=== PATIENT | male | born 1975 | race Caucasian/White ===

== ENCOUNTER 2020-07-17 08:37 | Emergency (ER) | payer OTHER, SELFPAY ==
--- NOTE | ~2020-07-17 | CT_ITS ---
EXAMINATION: CT ABDOMEN AND PELVIS WITH CONTRAST CLINICAL INFORMATION: Nausea/emesis, gallstone. Abdominal pain COMPARISON: None TECHNIQUE: Multidetector volumetric images were obtained from the superior aspect of the liver through the pubic symphysis following administration 85 mL of Omnipaque 350 intravenous contrast. Sagittal and coronal reformatted images were obtained on the technologist's workstation. Oral contrast: No This CT examination was performed using dose optimization techniques as appropriate, variously including the following: *Automated exposure control *Adjustment of mA and/or kV according to patient size (this includes techniques or standardized protocols for targeted exams where dose is matched to indication/reason for exam; i.e. extremities or head) *Use of iterative reconstruction technique DLP: 687 mGy-cm FINDINGS: LUNG BASES: Minimal atelectatic changes in both lung bases. The heart size is normal. A small hiatal hernia suspected. LIVER, GALLBLADDER, AND BILIARY TREE: The liver is normal in size, shape, and attenuation. No focal hepatic lesion or biliary ductal dilatation is present. The gallbladder is unremarkable with no evidence of radiopaque gallstones, gallbladder wall thickening, or obvious pericholecystic inflammatory changes. PANCREAS: Unremarkable. SPLEEN: Unremarkable. ADRENAL GLANDS: Unremarkable. KIDNEYS AND URETERS: The kidneys are normal in size, shape, and attenuation. No hydronephrosis, hydroureter, or calculi seen. No perinephric stranding. BLADDER: Unremarkable. GASTROINTESTINAL TRACT: There is scattered stool, diverticuli and gas seen throughout the colon without distention. The small bowel loops are normal caliber. No inflammatory process seen in the abdomen. The appendix is normal caliber. There is no free air or free fluid. ABDOMINAL WALL: A small umbilical hernia and a left inguinal hernia containing fat is noted. LYMPH NODES: Normal. VASCULAR: Unremarkable. PELVIC VISCERA: There are scattered phleboliths in the pelvis. The prostate gland is normal size. OSSEOUS STRUCTURES: Unremarkable. CT/CT abdomen pelvis w con IMPRESSION: Colonic diverticulosis without diverticulitis. No obstruction, free fluid. Normal appendix. Small hiatal hernia. Small umbilical hernia and left inguinal hernia containing fat.
[2020-07-17 09:02] VITALS: BP 127/87; PULSE 68; RESP 16; TEMP 36.7; O2SAT 97; BMI 30.1
--- NOTE | 2020-07-17 09:03 | ECG_ITS ---
Test Reason : NAUSEA Blood Pressure : / mmHG Vent. Rate : 064 BPM Atrial Rate : 064 BPM P-R Int : 148 ms QRS Dur : 090 ms QT Int : 398 ms P-R-T Axes : 044 001 047 degrees QTc Int : 410 ms Normal sinus rhythm with sinus arrhythmia Normal ECG No previous ECGs available Referred By: Parveen Malagon Electronically Signed By:BIANKA MITCHELL MD
--- NOTE | 2020-07-17 09:14 | ED_ITS ---
HPI - Nausea/Vomiting/Diarrhea General Chief complaint: Nausea/Vomiting/Diarrhea Stated complaint: VOMITING Time Seen by Provider: 07/17/20 08:50 Source: patient Mode of arrival: ambulatory Limitations: no limitations History of Present Illness HPI Narrative: Patient presents to ED in for nausea and vomiting. Patient states having this issue for many years and comes into the ER at least 4 to 5 times a year for this issue. 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 Patient was seen at [facility] yesterday he was given GI cocktail before discharge. Patient states history of gastritis. Patient states not having this time abdominal discomfort, but just constant v omiting the past 4 days. Patient denies any drug use, rectal bleeding, or vomiting blood. Patient denies any alcohol use. Patient denies going to withdrawal on any drugs. Patient denies any chest pain, shortness of breath, flank pain, dysuria, hematuriaa, fever, or chills. MD elicited complaint: nausea and vomiting Associated nausea: Yes Related Data Previous Rx's Medication Instructions Recorded famotidine [Pepcid] 20 mg PO BID #40 tab 07/17/20 Allergies Allergy/AdvReac Type Severity Reaction Status Date / Time ibuprofen [IBUPROFEN] Allergy Unknown UNKNOWN Verified 07/17/20 09:33 cyclobenzaprine AdvReac Unknown VISUAL Verified 07/17/20 09:33 [From FLEXERIL] CHANGES Review of Systems Review of Systems: Yes all other systems are reviewed and are negative Constitutional: Constitutional: Reports as per HPI and Reports no additional constitutional complaints Eyes: Eyes: Reports as per HPI and Reports no additional eye complaints ENT: Reports system reviewed and no additional complaints, except as documented and Reports as per HPI Cardiovascular: Cardiovascular: Reports as per HPI and Reports no additional cardiovascular complaints Respiratory: Respiratory: Reports as per HPI and Reports no additional respiratory complaints Gastrointestinal: Gastrointestinal: Reports as per HPI, Reports no additional gastrointestinal complaints, Reports abdominal pain (Mild), Reports nausea and Reports vomiting Genitourinary: Genitourinary: Reports no additional male genitourinary complaints and Reports as per HPI Musculoskeletal: Musculoskeletal: Reports no additional musculoskeletal complaints and Reports as per HPI Neurologic: Reports system reviewed and no additional complaints, except as documented and Reports as per HPI Psychiatric: Psychiatric: Reports no additional psychiatric complaints and Reports as per HPI [facility] Social History Social History Alcohol intake: current Alcohol intake frequency: a few times a week Alcohol type: beer Smoking Status: Current every day smoker Physical Exam Vital Signs: Vital Signs: Last Vital Signs Temp 98.1 F 07/17/20 09:02 Pulse 76 07/17/20 14:00 Resp 18 07/17/20 14:00 BP 104/76 07/17/20 14:00 Pulse Ox 95 07/17/20 14:00 Body Mass Index 30.1 Const: General: cooperative, healthy appearing, comfortable, no acute distress, well developed, alert, awake and Physically active Orientation/consciousness: patient oriented x3 HENMT: Head: Yes normal to inspection, Yes No palpable skull fracture present, Yes normocephalic and Yes atraumatic Eyes: General: appearance normal, both eyes and all related structures Neck: Neck: Yes normal visual inspection, Yes full ROM, Yes no lymphaden opathy, Yes no meningeal signs, Yes trachea midline, Yes supple and No tender Chest: Chest palpation & inspection: normal inspection of the chest and normal palpation of entire chest wall Resp: Effort & Inspection: normal respiratory effort and able to speak in complete sentences Auscultation: clear to auscultation bilaterally Cardio: Jugular venous distension: no JVD Heart sounds: S1 normal heart sound present and S2 normal heart sound present GI: Inspection: Yes normal to inspection and No abdominal wall ecchymosis Palpation (GI): Soft to palpation, not firm, nontender, no guarding and not rigid : General: No CVA tenderness and Yes no CVA tenderness Back/Spine/Pelvis: Back: no CVA tenderness, No CVA tenderness and No back tenderness Skin: General skin exam: no rashes or lesions noted and elasticity normal Neuro: General: patient oriented x3, no meningeal signs and CN's II-XI intact bilaterally Cranial nerves: Yes CN's II-XII intact bilaterally Extrem: General: Yes normal to inspection and Yes full ROM Psych: Appearance: grossly normal, well kempt and not disheveled Course Course Course Narrative: Patient will have repeat labs and due to history for father dying from a heart attack in his 50s patient will have EKG and 1 troponin sent. Patient denies any chest pain or shortness of breath. Reevaluation(s) Reevaluation #1: patient's labs came back normal and at baseline. negative for elevated WBC. Liver enzymes normal. ekg negative for stemi. troponin is negative after 4 days of emesis. patient will be sent for abdominal Ct scan. patient was seen last night at [facility] ER, but I could not receive records although they were reqeusted. Reevaluation #2: CT scan of abdomen came back normal. UA negative for UTI. passed PO challenge. patient already has zofran prescription from [facility]. patient has follow up with PCP for and informed he shold be referred to GI doctor. cyclic vomitting is a differential. MDM - Nausea/Vomiting/Diarrhea MDM Narrative Medical decision making narrative: Gastritis, nausea& emesis Lab Data Result diagrams: 07/17/20 09:28 07/17/20 09:28 Labs: Lab Results 07/17/20 07/17/20 07/17/20 Range/Units 09:28 09:28 09:28 WBC 8.6 (4.8-10.8) X10*3/uL RBC 5.03 (4.60-5.80) X10*6/uL Hgb 15.3 (14.0-18.0) g/dl Hct 45.1 (42-52) % MCV 89.7 (80-98) fL MCH 30.4 (27.0-33.0) pg MCHC 33.9 (31.0-36.0) g/dl RDW 12.9 (11.0-16.0) % Plt Count 224 (160-400) X10*3/uL MPV 10.0 (9.4-12.4) fL Immature Gran % (Auto) 0.2 (0.0-0.4) % Neut % (Auto) 74.9 H (45-73) % Lymph % (Auto) 19.0 L (20-40) % Coke % (Auto) 5.4 (2-11) % Eos % (Auto) 0.2 (0-4) % Baso % (Auto) 0.3 (0-2) % Lymph # (Auto) 1.6 (1.2-4.9) X10*3/uL [place] # (Auto) 0.5 (0.1-1.2) X10*3/uL Eos # (Auto) 0.0 (0.0-0.4) X10*3/uL Baso # (Auto) 0.0 (0.0-0.2) X10*3/uL Abs Immat Gran (auto) 0.02 (0.00-0.03) X10*3/uL Absolute Neuts (auto) 6.4 (2.0-8.3) X10*3/uL Absolute Nucleated RBC 0.000 (0.0-0.012) X10*3/uL Nucleated RBC % (auto) 0.0 (0.0-0.2) /100WBC Sodium 138 (135-145) mmol/L Potassium 4.1 (3.3-5.1) mmol/L Chloride 104 (96-108) mmol/L Carbon Dioxide 24 (22-29) mmol/L Anion Gap 14 (12-20) BUN 16 (9-16) mg/dL Creatinine 0.84 (0.5-1.4) mg/dL Estim Creat Clear Calc 132.7 Estimated GFR > 60 Random Glucose 105 (60-115) mg/dL Calcium 8.7 (8.4-10.2) mg/dL Magnesium 2.1 (1.6-2.6) mg/dL Total Bilirubin 0.9 (0.0-1.0) mg/dL Direct Bilirubin 0.3 (0.0-0.5) mg/dL AST 20 (5-37) U/L ALT 25 (0-40) U/L Alkaline Phosphatase 40 (39-117) U/L Troponin I High Sens < 3.5 (<3.5-35.0) ng/L Total Protein 6.6 (6.5-8.0) g/dL Albumin 4.2 (3.5-5.0) g/dL Lipase 40 (8-78) U/L Urine Color Urine Appearance Urine pH (5.0-8.0) Ur Specific [place] (1.005-1.025) Urine Protein (NEG-TRACE) MG/DL Urine Glucose (UA) (NEG) MG/DL Urine Ketones (NEG) MG/DL Urine Blood (NEG) Urine Nitrite (NEG) Ur Leukocyte Esterase (NEG) COVID-19 (SALO) (Negative) COVID-19 Clin Com 07/17/20 07/17/20 Range/Units 09:28 12:42 WBC (4.8-10.8) X10*3/uL RBC (4.60-5.80) X10*6/uL Hgb (14.0-18.0) g/dl Hct (42-52) % MCV (80-98) fL MCH (27.0-33.0) pg MCHC (31.0-36.0) g/dl RDW (11.0-16.0) % Plt Count (160-400) X10*3/uL MPV (9.4-12.4) fL Immature Gran % (Auto) (0.0-0.4) % Neut % (Auto) (45-73) % Lymph % (Auto) (20-40) % [place] % (Auto) (2-11) % Eos % (Auto) (0-4) % Baso % (Auto) (0-2) % Lymph # (Auto) (1.2-4.9) X10*3/uL [place] # (Auto) (0.1-1.2) X10*3/uL Eos # (Auto) (0.0-0.4) X10*3/uL Baso # (Auto) (0.0-0.2) X10*3/uL Abs Immat Gran (auto) (0.00-0.03) X10*3/uL Absolute Neuts (auto) (2.0-8.3) X10*3/uL Absolute Nucleated RBC (0.0-0.012) X10*3/uL Nucleated RBC % (auto) (0.0-0.2) /100WBC Sodium (135-145) mmol/L Potassium (3.3-5.1) mmol/L Chloride (96-108) mmol/L Carbon Dioxide (22-29) mmol/L Anion Gap (12-20) BUN (9-16) mg/dL Creatinine (0.5-1.4) mg/dL Estim Creat Clear Calc Estimated GFR Random Glucose (60-115) mg/dL Calcium (8.4-10.2) mg/dL Magnesium (1.6-2.6) mg/dL Total Bilirubin (0.0-1.0) mg/dL Direct Bilirubin (0.0-0.5) mg/dL AST (5-37) U/L ALT (0-40) U/L Alkaline Phosphatase (39-117) U/L Troponin I High Sens (<3.5-35.0) ng/L Total Protein (6.5-8.0) g/dL Albumin (3.5-5.0) g/dL Lipase (8-78) U/L Urine Color YELLOW Urine Appearance CLEAR Urine pH 7.5 (5.0-8.0) Ur Specific [place] 1.010 (1.005-1.025) Urine Protein NEG (NEG-TRACE) MG/DL Urine Glucose (UA) NEG (NEG) MG/DL Urine Ketones 40 (NEG) MG/DL Urine Blood NEG (NEG) Urine Nitrite NEG (NEG) Ur Leukocyte Esterase NEG (NEG) COVID-19 (SALO) Negative (Negative) COVID-19 Clin Com See Note ECG Data Interpretation: NOrmal sinus rythm with sinus arrythima. Vent 64, MI 148, QRS 90, QTC 410 Discharge Plan Discharge Clinical Impression: Chronic gastroesophageal reflux disease Patient Disposition: Home, Self-Care Instructions: Gastroesophageal Reflux Disease (ED), Acute Nausea and Vomiting (ED) Additional Instructions: Return to the ED immediately for worsening, nausea, emesis, any abdominal pain, fever, chills, dysuria, hematuria, flank pain, rectal bleeding, vomitting blood, or any other concerning symptoms. Recommend PCP follow up and referal to Gastroenterology. [facility]. Your labs, EKG, abdominal CT scan, and UA came back normal. Your covid swab came back negative. Prescriptions: New famotidine [Pepcid] 20 mg tablet 20 mg PO BID Qty: 40 RF: 0 Referrals: Bryn Simpson [Physician] - 2 days (Chronic nausea & emesis) Stand Alone Forms: Work/School Release Interventions: ED Discharge Assessment Last Done: 07/17/20 15:25 Discharge Date/Time: 07/17/20 15:26 Print Language: [place]se
[2020-07-17] MEDS: 0.9 % Sodium Chloride 1,000 ML 999 ML IV (09:34)
[2020-07-17] MEDS: Famotidine/PF 20 MG/2 ML VIAL IVPUSH (09:41)
[2020-07-17] MEDS: PHENobarb/Hyoscy/Atropine/Scop 10 ML ELIXIR PO (09:43)
[2020-07-17] MEDS: ondansetron HCL 4 MG/2 ML VIAL IVPUSH ×2 (09:43→10:32)
[2020-07-17] MEDS: Lidocaine HCl Viscous 2 % 15 ML SOLUTION MUCOUS MEM (09:44)
[2020-07-17] MEDS: Magnesium Hydrox/Alum Hydrox 30 ML ORAL.SUSP PO (09:44)
--- NOTE | 2020-07-17 09:47 | PC.NURSE ---
IV placed. Labs obtained and pt medicated. He is resting in bed in no apparent distress at this time.
[2020-07-17 10:02] LABS: MANUAL DIFF FLAG NO
[2020-07-17 10:05] LABS: Basophils Percent Auto 0.3 % (0-2); Eosinophils Percent Auto 0.2 % (0-4); Hematocrit 45.1 % (42-52); Hemoglobin 15.3 g/dl (14.0-18.0); Imm Gran Abs Auto 0.02 X10*3/uL (0.00-0.03); Imm Gran Pct Auto 0.2 % (0.0-0.4); Lymphocytes Absolute Auto 1.6 X10*3/uL (1.2-4.9); Mean Corpuscular HGB Conc 33.9 g/dl (31.0-36.0); Mean Corpuscular Hemoglobin 30.4 pg (27.0-33.0); Mean Corpuscular Volume 89.7 fL (80-98); Monocytes Absolute Auto 0.5 X10*3/uL (0.1-1.2); Monocytes Percent Auto 5.4 % (2-11); Neutrophils Absolute Auto 6.4 X10*3/uL (2.0-8.3); Neutrophils Percent Auto 74.9 % (45-73); Platelet Count 224 X10*3/uL (160-400); Red Blood Count 5.03 X10*6/uL (4.60-5.80); Red Cell Distribution Width 12.9 % (11.0-16.0); White Blood Count 8.6 X10*3/uL (4.8-10.8)
[2020-07-17 10:23] LABS: COVID-19 Test Negative (Negative)
[2020-07-17 10:30] LABS: Alanine Aminotransferase 25 U/L (0-40); Albumin Level 4.2 g/dL (3.5-5.0); Alkaline Phosphatase 40 U/L (39-117); Anion Gap 14 (12-20); Aspartate Amino Transferase 20 U/L (5-37); Bilirubin Direct 0.3 mg/dL (0.0-0.5); Bilirubin Total 0.9 mg/dL (0.0-1.0); Blood Urea Nitrogen 16 mg/dL (9-16); Calcium 8.7 mg/dL (8.4-10.2); Carbon Dioxide 24 mmol/L (22-29); Chloride 104 mmol/L (96-108); Creatinine Clr Calc Pharmacy 132.7; Estimated Glomerular Filt Rate > 60; Glucose Random 105 mg/dL (60-115); Lipase 40 U/L (8-78); Magnesium 2.1 mg/dL (1.6-2.6); Potassium 4.1 mmol/L (3.3-5.1); Sodium 138 mmol/L (135-145); Total Protein 6.6 g/dL (6.5-8.0)
[2020-07-17 10:31] LABS: Troponin-I High Sensitivity < 3.5 ng/L (<3.5-35.0)
--- NOTE | 2020-07-17 10:32 | PC.NURSE ---
Pt continues to have nusea and is c/o back pain. Sari ordered/given and Parveen STONE at beside with plans to order pain medications.
[2020-07-17] MEDS: diphenhydrAMINE HCL 50 MG/ML VIAL 25 MG IVPUSH (10:40)
[2020-07-17] MEDS: Ketorolac Tromethamine 30 MG/ML VIAL IVPUSH (10:41)
[2020-07-17] MEDS: iohexoL 350 MG/ML 100 ML INFUS..BTL IV (11:41)
[2020-07-17 12:49] LABS: Appearance Urine CLEAR; Color Urine YELLOW; Glucose Urine UA NEG (NEG); Leukocyte Esterase Urine NEG (NEG); Nitrite Urine NEG (NEG); PH 7.5 (5.0-8.0); Urine Blood NEG (NEG); Urine Ketones 40 MG/DL (NEG); Urine Protein NEG (NEG-TRACE)
[2020-07-17 14:00] VITALS: BP 104/76; PULSE 76; RESP 18; O2SAT 95
== END 2020-07-17 15:26 | disposition home or self-care (01) ==
PROVIDERS: Physician Assistant; Emergency Provider Emergency Medicine
DX: K21.9 Gastro-esophageal reflux disease without esophagitis (principal); R11.2 Nausea with vomiting, unspecified; R19.7 Diarrhea, unspecified; Z79.899 Other long term (current) drug therapy; F17.200 Nicotine dependence, unspecified, uncomplicated; Z71.6 Tobacco abuse counseling; Z20.822 Contact with and (suspected) exposure to COVID-19
CPT/HCPCS: 36415; 74177; 80053; 80076; 81003; 82248; 83690; 83735; 84484; 85025; 87635; 93005; 96365; 96375; 96376; 99284; J1200; J1885; J2405; Q9967

== ENCOUNTER 2020-11-11 11:10 | Emergency (ER) | payer OTHER, SELFPAY ==
[2020-11-11 11:22] VITALS: BP 106/79; PULSE 94; RESP 19; TEMP 36.9; O2SAT 95; BMI 31.5
--- NOTE | 2020-11-11 11:50 | ED.BACK ---
HPI - Back Pain/Injury General Chief Complaint: Back Pain/Injury Stated Complaint: low back pain Time Seen by Provider: 11/11/20 11:49 Source: patient Mode of arrival: ambulatory Limitations: no limitations History of Present Illness HPI Narrative: 45 y/o male presenting with acute on chronic lower back pain since yesterday. He reports a history of a laminectomy several years ago with some chonic baseline pain. Yesterday he wsa carrying a heavy box, about 40-45 lbs and lost his balance and twisted wrong with the box. He fell down forward with it, it pulled him to the ground. He felt his entire low back tense up and spasm. He has been unable to get in a comfortable position since. He has been taking Aleve with no improvement. No direct trauma to his back. No numbness, tingling or weakness in his legs. No incontinence. Pain is worse with any movement and improves with staying completely flat. MD elicited complaint: back pain, back injury and fall Pertinent past history: prior back pain Onset (ago): day(s) (1) Timing: constant Severity: severe Pain scale (0-10): 9 Quality: stabbing, aching and spasming Location: right lower back and left lower back Radiation: none Exacerbating factors: movement, walking and coughing/sneezing Relieving factors: immobilization Context: while lifting, turning/twisting and fall Associated symptoms: denies other symptoms Treatments prior to arrival: NSAIDS Work related injury: Yes Related Data Previous Rx's Medication Instructions Recorded famotidine 20 mg tablet (Pepcid) 20 mg PO BID #40 tab 07/17/20 ibuprofen 800 mg tablet 800 mg PO Q8H PRN #14 tab 11/11/20 lidocaine 5 % topical patch 1 patch TOPICAL DAILY #15 ea 11/11/20 (Lidoderm) oxycodone 5 mg tablet 5 mg PO Q6H PRN #8 tab 11/11/20 tizanidine 4 mg tablet 4 mg PO Q8H PRN #10 tab 11/11/20 Allergies Allergy/AdvReac Type Severity Reaction Status Date / Time ibuprofen [IBUPROFEN] Allergy Unknown UNKNOWN Verified 07/17/20 09:33 cyclobenzaprine AdvReac Unknown VISUAL Verified 07/17/20 09:33 [From FLEXERIL] CHANGES Review of Systems Review of Systems: Constitutional: No Fever, No Chills Cardiovascular: No Chest Pain, No SOB Respiratory: No Cough, No Sputum Gastrointestinal: No Nausea, No Vomiting, No Diarrhea, No abdominal Pain Genitourinary: No Dysuria, No Urinary Frequency, No Hematuria Musculoskeletal: + joint pain, + Myalgias Skin: No Skin Lesions, No rash Neuro: No Weakness, No Numbness, No Dizziness, No Headache Heme/Lymph: No Bruising, No Lymphadenopathy PMFSH Past Medical History Medical History (Updated 11/11/20 @ 14:41 by BERTHA Delgadillo) No known health problems Social History Social History Alcohol intake: current Alcohol intake frequency: a few times a week Alcohol type: beer Advance Directives: No Advance Directives Information Provided: No Physical Exam Vital Signs: Vital Signs: Last Vital Signs Temp 98.4 F 11/11/20 11:22 Pulse 94 11/11/20 11:22 Resp 19 11/11/20 11:22 BP 106/79 11/11/20 11:22 Pulse Ox 95 11/11/20 11:22 Body Mass Index 31.5 Appearance: Alert. Oriented X3. No acute distress. HEENT: normal inspection CVS: Normal heart rate and rhythm. Pulses normal. Respiratory: No respiratory distress. Skin: Skin warm and dry. Normal skin color. Normal skin turgor. No rashes. Extremities: no LE swelling Neuro: Oriented X 3. No motor deficit. No sensory deficit. Course Course Course Narrative: 45 y/o male presenting with acute on chronic back pain in the setting of lifting and twisting with a heavy box yesterday. Exam and clinical presentation are consistent with muscular strain and spasm. No red flag symptoms of LBP. Will medicate with NSAID, oxycodone, and muscle relaxer and reassess. Reevaluation(s) Reevaluation #1: Pain improved from a 9 to a 7 or 8, still very uncomfortable to move at all. Soft tissue tenderness to low back. Will repeat treatment and reassess. Reevaluation #2: Pain improved. Sitting up at the edge of the bed and feeling better. He feels good enough to go home. Discussed the importance of outpatient follow up, he has barriers to establishing a PCP with his job and traveling. He will continue to try and is on a wait list to be seen in Dec/Jan. Stable for d/c home. Critical Care Time Critical Care Time Critical Care Time: No Discharge Plan Discharge Clinical Impression: Strain of lumbar region Qualifiers: Encounter type: initial encounter Qualified Code(s): S39.012A - Strain of muscle, fascia and tendon of lower back, initial encounter Patient Disposition: Home, Self-Care Instructions: Low Back Strain (ED), Lower Back Exercises (ED) Additional Instructions: No bending, lifting or twisting. Use ice several times per day for 20 minutes at a time for the next 48 hours and then change to heat. Take medications as prescribed to help with pain and discomfort. Follow up with your Primary Care Doctor this week. If your pain worsens, if you develop new numbness, tingling, weakness, loss of function or incontinence call 911 or come back to the ER right away for evaluation. Prescriptions: New tizanidine 4 mg tablet 4 mg PO Q8H PRN (Reason: muscle spasticity) Qty: 10 RF: 0 ibuprofen 800 mg tablet 800 mg PO Q8H PRN (Reason: pain) Qty: 14 RF: 0 lidocaine [Lidoderm] 5 % adhesive patch,medicated 1 patch topical DAILY Qty: 15 RF: 0 oxycodone 5 mg tablet 5 mg PO Q6H PRN (Reason: pain) Qty: 8 RF: 0 No Action famotidine [Pepcid] 20 mg tablet 20 mg PO BID Qty: 40 RF: 0 Stand Alone Forms: Work/School Release Interventions: ED Discharge Assessment Last Done: 11/11/20 15:14 Discharge Date/Time: 11/11/20 15:15
[2020-11-11] MEDS: oxyCODONE HCl Immed Release 5 MG TABLET PO ×2 (12:29→13:27)
[2020-11-11] MEDS: Ketorolac Tromethamine 15 MG/ML VIAL 30 MG IM (12:29)
[2020-11-11] MEDS: Cyclobenzaprine HCl 10 MG TABLET PO (12:29)
[2020-11-11] MEDS: Lidocaine 4 % Patch ADH..PATCH 1 PATCH TRANSDERMA (13:27)
[2020-11-11] MEDS: TiZANidine HCL 4 MG TABLET PO (13:28)
[2020-11-11] MEDS: Omeprazole 40 MG CAPSULE.DR PO (14:49)
[2020-11-11] MEDS: Calcium Carbonate 750 MG TAB.CHEW PO (14:49)
== END 2020-11-11 15:15 | disposition home or self-care (01) ==
PROVIDERS: Emergency Provider Emergency Medicine Emergency Medical Services
DX: S39.012A Strain of muscle, fascia and tendon of lower back, initial encounter (principal); W10.9XXA Fall (on) (from) unspecified stairs and steps, initial encounter; Y93.9 Activity, unspecified; Y92.9 Unspecified place or not applicable; Y99.9 Unspecified external cause status; Z79.899 Other long term (current) drug therapy
CPT/HCPCS: 96372; 99284; J1885

== ENCOUNTER 2020-11-14 06:44 | Emergency (ER) | payer OTHER, SELFPAY ==
--- NOTE | ~2020-11-14 | CT_ITS ---
EXAMINATION: CT LUMBAR SPINE WITHOUT CONTRAST CLINICAL INFORMATION: History of back surgery. Worsening back pain after fall. Right hip pain. COMPARISON: CT abdomen and pelvis from 07/17/2020. TECHNIQUE: Noncontrast multidetector CT imaging examination of the lumbar spine. Axial images are presented at 1.5 mm and 2 mm slice thickness. Coronal and sagittal reformatted images were generated and reviewed. This CT examination was performed using dose optimization techniques as appropriate, variously including the following: *Automated exposure control *Adjustment of mA and/or kV according to patient size (this includes techniques or standardized protocols for targeted exams where dose is matched to indication/reason for exam; i.e. extremities or head) *Use of iterative reconstruction technique DLP; 517 mGy-cm FINDINGS: The lumbar vertebra have normal density, height and alignment. No evidence of pars interarticularis defect or vertebral compression fracture. Prior L3 laminectomy. Otherwise, posterior elements are intact. No focal lytic or osteoblastic lesion. The intervertebral disc height is well-preserved throughout the lumbar spine. At L3-L4, there is mild disc bulge and mild facet hypertrophy. Also, mild bulging of discs noted at L4-5 and L5-S1. No significant narrowing of the central spinal canal. At L5-S1, the bulging disc encroaches on the inferior aspect of each neural foramen (right worse than left) and appears to mildly impinge upon the exiting right L5 nerve root and contact the exiting left L5 nerve root. These imaging findings are unchanged compared to 07/17/2020. Sacrum and sacroiliac joints are normal. No evidence of paraspinal soft tissue edema or hematoma. No para-aortic lymphadenopathy. The visualized abdominal aorta is normal. Also, the visualized kidneys are normal; no evidence of nephrolithiasis or hydroureteronephrosis. CT/CT lumbar spine wo con IMPRESSION: * No acute imaging abnormalities in the lumbosacral spine compared to 07/17/2020, status post L3 laminectomy. No evidence of vertebral compression fracture or subluxation. * There are chronically bulging discs at L3-L4, L4-5 and L5-S1 without significant narrowing of the central spinal canal. * At L5-S1, the disc bulge encroaches on the right and left neural foramen (right worse on left) and there appears to be chronic mild impingement upon the exiting right L5 nerve root. This is unchanged compared to 07/17/2020.
--- NOTE | ~2020-11-14 | XR_ITS ---
EXAMINATION: CHEST. AP PELVIS AND RIGHT HIP. CLINICAL INFORMATION: Status post fall with right hip pain. COMPARISON: None TECHNIQUE: AP pelvis and right hip 3 views. Chest 2 views. FINDINGS: AP PELVIS: There is loss of bilateral SI joints and hip joint space. No bony erosive changes. No fracture. The soft tissues are normal. RIGHT HIP: There is no visible acute fracture, dislocation or subluxation. No bony erosive changes. CHEST: Both lungs are well-expanded and clear of acute process. Heart size and pulmonary vascularity is normal. No gross bony abnormality seen. XR/XR hip RT w PEL1V IMPRESSION: Unremarkable AP pelvis and right hip exam. Unremarkable chest exam.
--- NOTE | ~2020-11-14 | XR_ITS ---
EXAMINATION: CHEST. AP PELVIS AND RIGHT HIP. CLINICAL INFORMATION: Status post fall with right hip pain. COMPARISON: None TECHNIQUE: AP pelvis and right hip 3 views. Chest 2 views. FINDINGS: AP PELVIS: There is loss of bilateral SI joints and hip joint space. No bony erosive changes. No fracture. The soft tissues are normal. RIGHT HIP: There is no visible acute fracture, dislocation or subluxation. No bony erosive changes. CHEST: Both lungs are well-expanded and clear of acute process. Heart size and pulmonary vascularity is normal. No gross bony abnormality seen. XR/XR chest 2V IMPRESSION: Unremarkable AP pelvis and right hip exam. Unremarkable chest exam.
[2020-11-14 07:21] VITALS: BP 134/97; PULSE 77; RESP 18; TEMP 36; O2SAT 99; BMI 31.5
[2020-11-14] MEDS: oxyCODONE HCl Immed Release 5 MG TABLET PO (08:46)
[2020-11-14] MEDS: diazePAM 5 MG TABLET PO (08:46)
[2020-11-14] MEDS: Ketorolac Tromethamine 15 MG/ML VIAL 30 MG IM (08:46)
--- NOTE | 2020-11-14 09:13 | ECG_ITS ---
Test Reason : BACK PAIN Blood Pressure : / mmHG Vent. Rate : 046 BPM Atrial Rate : 046 BPM P-R Int : 160 ms QRS Dur : 102 ms QT Int : 440 ms P-R-T Axes : 043 -02 032 degrees QTc Int : 385 ms Sinus bradycardia with sinus arrhythmia Otherwise normal ECG When compared with ECG of 17-JUL-2020 09:21, Heart rate has decreased Referred By: Niharika Bonilla Electronically Signed By:LLOYD MIRANDA
--- NOTE | 2020-11-14 09:13 | ED.BACK ---
HPI - Back Pain/Injury General Chief Complaint: Back Pain/Injury Stated Complaint: Back pain Time Seen by Provider: 11/14/20 08:16 Source: patient Mode of arrival: ambulatory Limitations: no limitations History of Present Illness HPI Narrative: 45-year-old male with a past medical history of chronic back pain with a history of a lumpectomy on the lumbar aspect of the spine presenting to the ED with complaints of acute on chronic lower back pain for the past few days worse today were he was in the bathroom and he feels like his legs gave out and he fell onto his right hip and since then has been having worsening lower back pain radiating to his upper aspect of his lower extremities with associated pins and needle sensation. He reports that he has chronic numbness/paresthesia to left upper extremity and he feels like this is unchanged. Although he reports that now he feels a burning sensation along with this and this is new since the fall. He also reports that he is feeling some dizziness and some left arm tingling/numbness which is new as well. He reports that he has also been coughing for the past month with clear/yellow/green colored sputum production with associated chest congestion and shortness of breath. He denies any head injury, loss of consciousness, headache, neck pain/stiffness, chest pain, dyspnea on exertion, orthopnea, palpitations, extremity edema, abdominal pain, dysuria, hematuria, constipation, diarrhea, urinary or bowel incontinence or retention, any focal or general weakness, any rashes or any other symptoms complaints or concerns or injuries at this time. MD elicited complaint: back pain, back injury and fall Pertinent past history: prior back pain, recent trauma and back surgery Onset (ago): minute(s) (Prior to arrival) Timing: constant Severity: severe Pain scale (0-10): 10 Similar Symptoms Previously: Yes Quality: burning and aching Location: lumbar spine Radiation: left upper leg and right upper leg Exacerbating factors: movement, walking and lifting Relieving factors: supine (or not moving ) Context: fall Work related injury: No Related Data Previous Rx's Medication Instructions Recorded famotidine 20 mg tablet (Pepcid) 20 mg PO BID #40 tab 07/17/20 ibuprofen 800 mg tablet 800 mg PO Q8H PRN #14 tab 11/11/20 lidocaine 5 % topical patch 1 patch TOPICAL DAILY #15 ea 11/11/20 (Lidoderm) oxycodone 5 mg tablet 5 mg PO Q6H PRN #8 tab 11/11/20 tizanidine 4 mg tablet 4 mg PO Q8H PRN #10 tab 11/11/20 acetaminophen 500 mg tablet 1,000 mg PO QID PRN #14 tab 11/14/20 (Tylenol Extra Strength) azithromycin 250 mg tablet See Rx Instructions .ROUTE 11/14/20 .COMPLEX #6 tab diazepam 10 mg tablet (Valium) 10 mg PO TID PRN #10 tab 11/14/20 ibuprofen 800 mg tablet 800 mg PO Q8H PRN #10 tab 11/14/20 lidocaine HCl 4 % topical cream 1 appl TOPICAL BID PRN #120 g 11/14/20 (Aspercreme (lidocaine HCl)) oxycodone 5 mg tablet 5 mg PO Q6H PRN #10 tab 11/14/20 Allergies Allergy/AdvReac Type Severity Reaction Status Date / Time cyclobenzaprine AdvReac Unknown VISUAL Verified 07/17/20 09:33 [From FLEXERIL] CHANGES Review of Systems Review of Systems: Constitutional : Positive fall/trauma, No Weight loss, No Fever, No Chills, ENT/Mouth : No Hearing loss, No Ear Pain, No Nasal Congestion, No Sinus Pain, No Hoarseness, No sore throat, No Rhinorrhea, No Swallowing Difficulty Cardiovascular : Positive SOB, No Chest Pain, No ALBRIGHT, No orthopnea, No Palpitations Respiratory : Positive Cough, Positive Dyspnea Gastrointestinal : No Nausea, No Vomiting, No Diarrhea, No abdominal Pain, No Hematochezia, No Melena Genitourinary : No Dysuria, No Urinary Frequency, No Hematuria, No Urinary or Bowel Incontinence/retention Musculoskeletal : Positive Back pain/injury, No neck pain, No joint stiffness, No joint swelling Skin : No Skin Lesions, No rash or signs of infection Neuro : Positive numbness/tingling/paresthesias, No Weakness, No headache, no loss of bowel or bladder incontinence, no saddle anesthesia, Focal weakness, No radiation Denies history of IV drug usage. Yes all other systems are reviewed and are negative [facility] Past Medical History Attestation statement: The following information was validated with the patient. Medical History No known health problems Social History Social History Alcohol intake: current Alcohol intake frequency: a few times a week Alcohol type: beer Advance Directives: No Advance Directives Information Provided: No Physical Exam Vital Signs: Vital Signs: Last Vital Signs Temp 96.8 F 11/14/20 07:21 Pulse 77 11/14/20 07:21 Resp 18 11/14/20 07:21 BP 134/97 H 11/14/20 07:21 Pulse Ox 99 11/14/20 07:21 Body Mass Index 31.5 vital signs have been reviewed as normal and appeared to be correct. Blood pressure hypertensive 134/97 Heart rate normal. Respiration rate normal. Temperature normal. Oxygen saturation normal. Appearance: Alert. Oriented X3. No acute distress. Head: Normal external exam. Normocephalic. Atraumatic. Eyes: PERRLA. EOMI. Conjunctiva and sclera normal. Eyelids normal. ENT: Pharynx normal. Uvula midline. Moist mucous membranes. Neck: Normal inspection. Neck supple. FROM. No adenopathy. Thyroid Normal. No meningeal signs. No neck mass noted. Nontender. Patient neuro intact bilaterally in the Daniel all 4 extremities. Reflex intact bilaterally on this in all 4 extremities. No rashes/lesion/induration/fluctuance or signs infection noted. No abrasions/lacerations/ecchymosis or signs of injury noted. CVS: Normal heart rate and rhythm. Heart sound normal. No murmurs noted. Pulses normal throughout. Respiratory: No respiratory distress. Painless inspiration. Breath sounds normal. No wheezes/rales/rhonchi noted. Chest nontender. No accessory muscle usage noted or decreased air movement noted. Abdomen: Soft and nontender. Bowel sounds normal in all 4 quadrants. No distention noted. No organomegaly noted. No visible injury noted. Back: No CVA tenderness. Full range of motion noted. No obvious deformities, or edema. Mild para-spinal muscular tenderness from lumbar region to coccyx. Full ROM in back and lower extremities. 5/5 strength hip extension/flexion, abduction, adduction. Mild Lumbar pain with hip flexion against resistance. Straight leg raise test negative on right; Straight leg raise test negative on left; Reflexes normal ankle and knee bilaterally; EHL motor strength normal bilaterally. No rashes/lesion/induration/fluctuance or signs infection noted. No abrasions/lacerations/ecchymosis or signs of injury noted. Skin: Skin warm and dry. Normal skin color. Normal skin turgor. No rashes/lesions/lacerations noted. Extremities: No lower extremity edema. Extremities exhibit normal range of motion. Extremities nontender. Neuro: Oriented X 3. No motor deficit. No sensory deficit. Reflexes normal. Patient has a normal steady gait. Course Course Course Narrative: 8:30am - 45-year-old male with a past medical history of chronic back pain with a history of a laminectomy presenting to the ED with complaints of acute on chronic lower back pain radiating to his upper aspects of bilateral lower extremities after he had a fall this morning where his legs gave out due to his chronic back pain landing on his right hip and since then has been having worsening back pain. He he reports that the pain is a burning pain sensation it is worse with any type of movement. Relieved by sitting still. Patient also reporting dizziness, left arm numbness, cough with sputum production and shortness of breath. On exam patient is alert and oriented x3. No focal neural deficits are noted. Lungs clear to auscultation. CV RRR. Abdomen is soft and nontender. Patient has tenderness to mid lumbar and paraspinous musculature no obvious deformities or step-offs or injuries noted on exam. Patient has a normal steady gait. Has full range of motion of the back upper and lower extremities. Pt c likely muscular pain, but could be herniated disc. Neuro exam shows no deficits. Not c/w AAA/epidural abscess/dissection.No high risk Hx (Incont, fever, immunosupp, recent surgery/LP, coag, signif trauma, wt loss, puls mass, hx/o Ca, TB, or IVDU) to warrant MRI today. Not c/w Pyelo/UTI/kidney stone. We will obtain a CT scan of lumbar spine to evaluate for possible lumbar fracture otherwise not c/w cauda equina syndrome. Will provide symptomatic treatment 30 mg of Toradol IM, 5 mg of Valium and 5 mg of oxycodone, obtain labs, chest x-ray, CT scan of lumbar spine without contrast, right hip x-ray, EKG then re-evaluate. Reevaluation(s) Reevaluation #1: - labs reviewed and all within normal limits. Chest x-ray and right hip x-ray within normal limits no acute processes were noted. Lumbar spine CT revealed chronic changes no acute processes were noted everything appears chronic in nature. EKG is sinus bradycardia with sinus arrhythmia with ventricular rate of 46 no acute ischemic changes were noted. - patient reports improvement in pain. - therefore at this time will DC home with symptomatic treatment along with instructions to return if any new or worsening symptoms and to follow-up with a primary care provider that I gave him a list of numbers that he can follow up with and to return if any new or worsening symptoms. Patient understands agrees with this plan. Time: 10:39 MDM - Back Pain/Injury Medical Records Attestation: I reviewed the patient's medical records. Lab Data Attestation: I reviewed the patient's lab results. Result diagrams: 11/14/20 09:53 11/14/20 09:53 Labs: Lab Results 11/14/20 11/14/20 11/14/20 Range/Units 09:53 09:53 09:53 WBC 6.8 (4.8-10.8) X10*3/uL RBC 4.80 (4.60-5.80) X10*6/uL Hgb 14.6 (14.0-18.0) g/dl Hct 42.4 (42-52) % MCV 88.3 (80-98) fL MCH 30.4 (27.0-33.0) pg MCHC 34.4 (31.0-36.0) g/dl RDW 12.5 (11.0-16.0) % Plt Count 182 (160-400) X10*3/uL MPV 9.8 (9.4-12.4) fL Immature Gran % (Auto) 0.4 (0.0-0.4) % Neut % (Auto) 65.1 (45-73) % Lymph % (Auto) 24.4 (20-40) % Stanton % (Auto) 6.4 (2-11) % Eos % (Auto) 3.1 (0-4) % Baso % (Auto) 0.6 (0-2) % Lymph # (Auto) 1.7 (1.2-4.9) X10*3/uL Stanton # (Auto) 0.4 (0.1-1.2) X10*3/uL Eos # (Auto) 0.2 (0.0-0.4) X10*3/uL Baso # (Auto) 0.0 (0.0-0.2) X10*3/uL Abs Immat Gran (auto) 0.03 (0.00-0.03) X10*3/uL Absolute Neuts (auto) 4.4 (2.0-8.3) X10*3/uL Absolute Nucleated RBC 0.000 (0.0-0.012) X10*3/uL Nucleated RBC % (auto) 0.0 (0.0-0.2) /100WBC Sodium 139 (135-145) mmol/L Potassium 4.2 (3.3-5.1) mmol/L Chloride 106 (96-108) mmol/L Carbon Dioxide 27 (22-29) mmol/L Anion Gap 10 L (12-20) BUN 13 (9-16) mg/dL Creatinine 0.80 (0.5-1.4) mg/dL Estim Creat Clear Calc 140.9 Estimated GFR > 60 Random Glucose 93 (60-115) mg/dL Calcium 9.2 (8.4-10.2) mg/dL Magnesium 1.9 (1.6-2.6) mg/dL Total Bilirubin 0.5 (0.0-1.0) mg/dL AST 13 (5-37) U/L ALT 13 (0-40) U/L Alkaline Phosphatase 37 L (39-117) U/L Troponin I High Sens < 3.5 (<3.5-35.0) ng/L Total Protein 6.2 L (6.5-8.0) g/dL Albumin 4.0 (3.5-5.0) g/dL Imaging Data Chest x-ray and right hip/pelvis x-ray: Attestation: I personally reviewed and interpreted this imaging study as follows: Radiologist's impression: FINDINGS: AP PELVIS: There is loss of bilateral SI joints and hip joint space. No bony erosive changes. No fracture. The soft tissues are normal. RIGHT HIP: There is no visible acute fracture, dislocation or subluxation. No bony erosive changes. CHEST: Both lungs are well-expanded and clear of acute process. Heart size and pulmonary vascularity is normal. No gross bony abnormality seen.? XR/XR hip RT w PEL1V IMPRESSION: Unremarkable AP pelvis and right hip exam. ? Unremarkable chest exam. CT of lumbar spine without contrast: Attestation: I personally reviewed and interpreted this imaging study as follows: Radiologist's impression: FINDINGS: The lumbar vertebra have normal density, height and alignment. No evidence of pars interarticularis defect or vertebral compression fracture. Prior L3 laminectomy. Otherwise, posterior elements are intact. No focal lytic or osteoblastic lesion. The intervertebral disc height is well-preserved throughout the lumbar spine. At L3-L4, there is mild disc bulge and mild facet hypertrophy. Also, mild bulging of discs noted at L4-5 and L5-S1. No significant narrowing of the central spinal canal. At L5-S1, the bulging disc encroaches on the inferior aspect of each neural foramen (right worse than left) and appears to mildly impinge upon the exiting right L5 nerve root and contact the exiting left L5 nerve root. These imaging findings are unchanged compared to 07/17/2020. Sacrum and sacroiliac joints are normal. No evidence of paraspinal soft tissue edema or hematoma. No para-aortic lymphadenopathy. The visualized abdominal aorta is normal. Also, the visualized kidneys are normal; no evidence of nephrolithiasis or hydroureteronephrosis.? CT/CT lumbar spine wo con IMPRESSION: *? No acute imaging abnormalities in the lumbosacral spine compared to 07/17/2020, status post L3 laminectomy. No evidence of vertebral compression fracture or subluxation. *? There are chronically bulging discs at L3-L4, L4-5 and L5-S1 without significant narrowing of the central spinal canal. *? At L5-S1, the disc bulge encroaches on the right and left neural foramen (right worse on left) and there appears to be chronic mild impingement upon the exiting right L5 nerve root. This is unchanged compared to 07/17/2020.? ECG Data Attestation: I personally reviewed and interpreted this ECG as follows: ECG interpretation date: 11/14/20 ECG interpretation time: 09:35 Interpretation: EKG is sinus bradycardia with sinus arrhythmia with ventricular rate of 46 no acute ischemic changes were noted. Discharge Plan Discharge Clinical Impression: Fall, Back strain, Strain of right hip, Bronchitis, Lumbar nerve root impingement, Bulging lumbar disc Patient Disposition: Home, Self-Care Instructions: Acute Bronchitis (ED), Lumbar Radiculopathy (ED), Lower Back Exercises (ED) Additional Instructions: This is your 2nd visit to the emergency department for acute on chronic lower back pain after a fall this to be the 2nd time you receive narcotics we cannot continue prescribing you narcotics from the ER basis therefore it is very important that you follow-up with a primary care provider or Pain Management or an orthopedist due to we will be unable to continue prescribing narcotics under next visit if you return. I have provided a few numbers below where you can call to reach out to a new primary care provider or to reach out to pain management and you can bring them your CT scan results. Your CT scan results of your lumbar spine are listed below and everything appears chronic No acute or new changes were noted. FINDINGS: of CT scan of lumbar spine without contrast The lumbar vertebra have normal density, height and alignment. No evidence of pars interarticularis defect or vertebral compression fracture. Prior L3 laminectomy. Otherwise, posterior elements are intact. No focal lytic or osteoblastic lesion. The intervertebral disc height is well-preserved throughout the lumbar spine. At L3-L4, there is mild disc bulge and mild facet hypertrophy. Also, mild bulging of discs noted at L4-5 and L5-S1. No significant narrowing of the central spinal canal. At L5-S1, the bulging disc encroaches on the inferior aspect of each neural foramen (right worse than left) and appears to mildly impinge upon the exiting right L5 nerve root and contact the exiting left L5 nerve root. These imaging findings are unchanged compared to 07/17/2020. Sacrum and sacroiliac joints are normal. No evidence of paraspinal soft tissue edema or hematoma. No para-aortic lymphadenopathy. The visualized abdominal aorta is normal. Also, the visualized kidneys are normal; no evidence of nephrolithiasis or hydroureteronephrosis.? CT/CT lumbar spine wo con IMPRESSION: *? No acute imaging abnormalities in the lumbosacral spine compared to 07/17/2020, status post L3 laminectomy. No evidence of vertebral compression fracture or subluxation. *? There are chronically bulging discs at L3-L4, L4-5 and L5-S1 without significant narrowing of the central spinal canal. *? At L5-S1, the disc bulge encroaches on the right and left neural foramen (right worse on left) and there appears to be chronic mild impingement upon the exiting right L5 nerve root. This is unchanged compared to 07/17/2020.? Prescriptions: New azithromycin 250 mg tablet See Rx Instructions .ROUTE .COMPLEX Qty: 6 RF: 0 ibuprofen 800 mg tablet 800 mg PO Q8H PRN (Reason: pain) Qty: 10 RF: 0 diazepam [Valium] 10 mg tablet 10 mg PO TID PRN (Reason: muscle spasm) Qty: 10 RF: 0 oxycodone 5 mg tablet 5 mg PO Q6H PRN (Reason: pain) Qty: 10 RF: 0 lidocaine HCl [Aspercreme (lidocaine HCl)] 4 % cream 1 appl topical BID PRN (Reason: pain) Qty: 120 RF: 0 acetaminophen [Tylenol Extra Strength] 500 mg tablet 1,000 mg PO QID PRN (Reason: fever or pain) Qty: 14 RF: 0 No Action famotidine [Pepcid] 20 mg tablet 20 mg PO BID Qty: 40 RF: 0 tizanidine 4 mg tablet 4 mg PO Q8H PRN (Reason: muscle spasticity) Qty: 10 RF: 0 ibuprofen 800 mg tablet 800 mg PO Q8H PRN (Reason: pain) Qty: 14 RF: 0 lidocaine [Lidoderm] 5 % adhesive patch,medicated 1 patch topical DAILY Qty: 15 RF: 0 oxycodone 5 mg tablet 5 mg PO Q6H PRN (Reason: pain) Qty: 8 RF: 0 Referrals: Julio C Cooper MD [Physician] - 2 days Etienne Hickey MD [Physician] - 2 days Fabby Stout DO [Physician] - 2 days Yuniel Page MD [Physician] - 2 days Print Language: Luxembourger
[2020-11-14 09:59] LABS: MANUAL DIFF FLAG NO
[2020-11-14 10:08] LABS: Basophils Percent Auto 0.6 % (0-2); Eosinophils Absolute Auto 0.2 X10*3/uL (0.0-0.4); Eosinophils Percent Auto 3.1 % (0-4); Hematocrit 42.4 % (42-52); Hemoglobin 14.6 g/dl (14.0-18.0); Imm Gran Abs Auto 0.03 X10*3/uL (0.00-0.03); Imm Gran Pct Auto 0.4 % (0.0-0.4); Lymphocytes Absolute Auto 1.7 X10*3/uL (1.2-4.9); Lymphocytes Percent Auto 24.4 % (20-40); Mean Corpuscular HGB Conc 34.4 g/dl (31.0-36.0); Mean Corpuscular Hemoglobin 30.4 pg (27.0-33.0); Mean Corpuscular Volume 88.3 fL (80-98); Mean Platelet Volume 9.8 fL (9.4-12.4); Monocytes Absolute Auto 0.4 X10*3/uL (0.1-1.2); Monocytes Percent Auto 6.4 % (2-11); Neutrophils Absolute Auto 4.4 X10*3/uL (2.0-8.3); Neutrophils Percent Auto 65.1 % (45-73); Platelet Count 182 X10*3/uL (160-400); Red Cell Distribution Width 12.5 % (11.0-16.0); White Blood Count 6.8 X10*3/uL (4.8-10.8)
[2020-11-14 10:16] LABS: Alanine Aminotransferase 13 U/L (0-40); Alkaline Phosphatase 37 U/L (39-117); Anion Gap 10 (12-20); Aspartate Amino Transferase 13 U/L (5-37); Bilirubin Total 0.5 mg/dL (0.0-1.0); Blood Urea Nitrogen 13 mg/dL (9-16); Calcium 9.2 mg/dL (8.4-10.2); Carbon Dioxide 27 mmol/L (22-29); Chloride 106 mmol/L (96-108); Creatinine Clr Calc Pharmacy 140.9; Estimated Glomerular Filt Rate > 60; Glucose Random 93 mg/dL (60-115); Magnesium 1.9 mg/dL (1.6-2.6); Potassium 4.2 mmol/L (3.3-5.1); Sodium 139 mmol/L (135-145); Total Protein 6.2 g/dL (6.5-8.0)
[2020-11-14 10:19] LABS: Troponin-I High Sensitivity < 3.5 ng/L (<3.5-35.0)
== END 2020-11-14 11:23 | disposition home or self-care (01) ==
PROVIDERS: Physician Assistant Medical; Emergency Provider Emergency Medicine
DX: S39.012A Strain of muscle, fascia and tendon of lower back, initial encounter (principal); S76.011A Strain of muscle, fascia and tendon of right hip, initial encounter; W18.30XA Fall on same level, unspecified, initial encounter; J40 Bronchitis, not specified as acute or chronic; M54.16 Radiculopathy, lumbar region; R06.02 Shortness of breath; I10 Essential (primary) hypertension; F17.210 Nicotine dependence, cigarettes, uncomplicated; Y93.89 Activity, other specified; Y92.012 Bathroom of single-family (private) house as the place of occurrence of the external cause; Y99.9 Unspecified external cause status
CPT/HCPCS: 36415; 71046; 72131; 73502; 80053; 83735; 84484; 85025; 93005; 96372; 99284; J1885

== ENCOUNTER 2020-11-19 10:45 | Outpatient (REF) | payer OTHER, SELFPAY ==
[2020-11-19 13:58] LABS: Appearance Urine HAZY; Color Urine YELLOW; Glucose Urine UA NEG (NEG); Leukocyte Esterase Urine NEG (NEG); Nitrite Urine NEG (NEG); Urine Blood NEG (NEG); Urine Ketones NEG (NEG); Urine Protein NEG (NEG-TRACE)
[2020-11-19 14:31] LABS: Alanine Aminotransferase 16 U/L (0-40); Albumin Level 4.3 g/dL (3.5-5.0); Alkaline Phosphatase 41 U/L (39-117); Anion Gap 15 (12-20); Aspartate Amino Transferase 16 U/L (5-37); Bilirubin Total 0.6 mg/dL (0.0-1.0); Blood Urea Nitrogen 18 mg/dL (9-16); Calcium 9.2 mg/dL (8.4-10.2); Carbon Dioxide 24 mmol/L (22-29); Chloride 106 mmol/L (96-108); Cholesterol 207 mg/dL; Estimated Glomerular Filt Rate > 60; Glucose Fasting 135 mg/dL (60-99); HDL Cholesterol 46 mg/dL; LDL Cholesterol Calculated 120 mg/dl; Potassium 4.6 mmol/L (3.3-5.1); Sodium 140 mmol/L (135-145); Total Protein 6.6 g/dL (6.5-8.0); Triglycerides 207 mg/dL
[2020-11-19 14:52] LABS: Prostate Specific Antigen Scr 0.83 ng/mL (<0.05-4.0); TSH reflex Free T4 1.16 uIU/mL (0.32-4.0)
[2020-11-20 08:18] LABS: HBS Num1 2.43 mIU/mL (0-7.99); HBc Num1 0.11 S/CO (0.00-0.79); HBsAGNum1 0.22 S/CO (0.00-0.99); HIV AB/AG Nonreactive (Nonreactive); HIV Num 1 0.06 S/CO (0.00-0.99); Hepatitis B Core Antibody Nonreactive (Nonreactive); Hepatitis B Surface Antigen Negative (Negative); ~Hepatitis B Surface Antibody NONREACTIVE (Nonreactive); ~Hepatitis C Antibody Nonreactive (Nonreactive)
[2020-11-20 09:01] LABS: Syphilis Screen Nonreactive (Nonreactive)
== END 2020-11-19 10:46 | disposition home or self-care (01) ==
LOC: HO.HMGCLDS 10:45
PROVIDERS: PCP Family Medicine; Visit Provider Family Medicine
DX: Z00.00 Encounter for general adult medical examination without abnormal findings (principal); Z12.5 Encounter for screening for malignant neoplasm of prostate; Z11.4 Encounter for screening for human immunodeficiency virus [HIV]; Z11.3 Encounter for screening for infections with a predominantly sexual mode of transmission; R36.1 Hematospermia
CPT/HCPCS: 36415; 80053; 80061; 81003; 84153; 84443; 86704; 86706; 86780; 86803; 87340; 87389

== ENCOUNTER 2021-02-01 09:22 | Outpatient (REF) | payer OTHER, SELFPAY ==
[2021-02-01 12:31] LABS: Anion Gap 16 (12-20); Blood Urea Nitrogen 11 mg/dL (9-16); Calcium 9.1 mg/dL (8.4-10.2); Carbon Dioxide 25 mmol/L (22-29); Chloride 104 mmol/L (96-108); Estimated Glomerular Filt Rate > 60; Glucose Fasting 80 mg/dL (60-99); Potassium 4.5 mmol/L (3.3-5.1); Sodium 140 mmol/L (135-145)
[2021-02-01 12:51] LABS: Estimated Average Glucose 108 mg/dL; Hemoglobin A1c % 5.4 %
== END 2021-02-01 09:23 | disposition home or self-care (01) ==
LOC: HO.WFDLDS 09:22
PROVIDERS: Visit Provider Family Medicine
DX: R73.01 Impaired fasting glucose (principal)
CPT/HCPCS: 36415; 80048; 83036

== ENCOUNTER → 2021-02-16 08:28 | Outpatient (BNVA) | payer OTHER, SELFPAY | PROVIDERS: PCP Family Medicine; Referring Provider Family Medicine; Visit Provider Psychiatry & Neurology Neurology ==

== ENCOUNTER 2021-02-24 18:46 | Outpatient (REF) | payer OTHER, SELFPAY ==
[2021-02-24 19:32] LABS: Influenza A PCR NEGATIVE (Negative); Influenza B PCR NEGATIVE (Negative); Resp Syncy Virus RNA Qual PCR NEGATIVE (Negative); SARS COV2 PCR INHOUSE NEGATIVE (Negative)
== END 2021-02-24 18:47 | disposition home or self-care (01) ==
LOC: HO.LNP 18:46
PROVIDERS: Visit Provider Family Medicine
DX: Z20.822 Contact with and (suspected) exposure to COVID-19 (principal); B34.9 Viral infection, unspecified
CPT/HCPCS: 0241U

== ENCOUNTER 2021-02-26 16:49 | Emergency (ER) | payer OTHER, SELFPAY ==
--- NOTE | ~2021-02-26 | CT_ITS ---
EXAMINATION: CT ABDOMEN AND PELVIS WITH CONTRAST CLINICAL INFORMATION: Abdominal tenderness COMPARISON: 07/17/2020 TECHNIQUE: Multidetector volumetric images were obtained from the superior aspect of the liver through the pubic symphysis following administration 85 mL of Omnipaque 350 intravenous contrast. Sagittal and coronal reformatted images were obtained on the technologist's workstation. Oral contrast: No This CT examination was performed using dose optimization techniques as appropriate, variously including the following: *Automated exposure control *Adjustment of mA and/or kV according to patient size (this includes techniques or standardized protocols for targeted exams where dose is matched to indication/reason for exam; i.e. extremities or head) *Use of iterative reconstruction technique DLP: 659 mGy-cm FINDINGS: LUNG BASES: The visualized lung bases are unremarkable. LIVER, GALLBLADDER, AND BILIARY TREE: The liver is normal in size, shape, and attenuation. No focal hepatic lesion or biliary ductal dilatation is present. The gallbladder is unremarkable with no evidence of radiopaque gallstones, gallbladder wall thickening, or obvious pericholecystic inflammatory changes. PANCREAS: Unremarkable. SPLEEN: Unremarkable. ADRENAL GLANDS: Unremarkable. KIDNEYS AND URETERS: The kidneys are normal in size, shape, and attenuation. No hydronephrosis, hydroureter, or calculi seen. No perinephric stranding. There is a subcentimeter hypoattenuating lesion at the lower pole of the left kidney which is too small to characterize, unchanged from prior. BLADDER: Unremarkable. GASTROINTESTINAL TRACT: The stomach is unremarkable. Normal caliber small bowel. No obstruction. Normal appendix. No colonic wall thickening or acute inflammation. Minimal colonic diverticulosis without diverticulitis. No free air or free fluid. ABDOMINAL WALL: Small fat-containing left inguinal hernia.. LYMPH NODES: Normal. VASCULAR: Unremarkable. PELVIC VISCERA: The prostate and seminal vesicles are unremarkable. OSSEOUS STRUCTURES: No acute or suspicious osseous abnormality. Mild degenerative changes in the hips. CT/CT abdomen pelvis w con IMPRESSION: No acute findings of the abdomen or pelvis. No inflammatory changes. Fleischner guidelines were followed.
[2021-02-26 16:55] VITALS: BP 161/101; PULSE 81; RESP 20; TEMP 37.2; O2SAT 98; BMI 29.2
[2021-02-26 21:03] LABS: MANUAL DIFF FLAG NO
[2021-02-26 21:07] LABS: Basophils Percent Auto 0.5 % (0-2); Eosinophils Percent Auto 0.3 % (0-4); Hematocrit 47.9 % (42.0-52.0); Hemoglobin 16.5 g/dl (14.0-18.0); Imm Gran Abs Auto 0.03 X10*3/uL (0.00-0.03); Imm Gran Pct Auto 0.3 % (0.0-0.4); Lymphocytes Absolute Auto 1.9 X10*3/uL (1.2-4.9); Lymphocytes Percent Auto 21.9 % (20-40); Mean Corpuscular HGB Conc 34.4 g/dl (31.0-36.0); Mean Corpuscular Hemoglobin 30.8 pg (27.0-33.0); Mean Corpuscular Volume 89.5 fL (80.0-98.0); Mean Platelet Volume 9.6 fL (9.4-12.4); Monocytes Absolute Auto 0.4 X10*3/uL (0.1-1.2); Monocytes Percent Auto 5.1 % (2-11); Neutrophils Absolute Auto 6.2 x10*3/uL (2.0-8.3); Neutrophils Percent Auto 71.9 % (45-73); Platelet Count 238 X10*3/uL (160-400); Red Blood Count 5.35 X10*6/uL (4.60-5.80); Red Cell Distribution Width 12.6 % (11.0-16.0); White Blood Count 8.7 X10*3/uL (4.8-10.8)
--- NOTE | 2021-02-26 21:19 | ED_ITS ---
HPI - Nausea/Vomiting/Diarrhea General Chief complaint: Nausea/Vomiting/Diarrhea Stated complaint: vomiting Time Seen by Provider: 02/26/21 17:52 Source: patient Mode of arrival: ambulatory Limitations: no limitations History of Present Illness HPI Narrative: 45-year-old male presents with 5 days of nausea and vomiting with diarrhea. MD elicited complaint: nausea, vomiting and diarrhea Pertinent past history: cyclical vomiting Onset (ago): day(s) (5) Description of vomiting: watery and bilious Description of diarrhea: watery Associated nausea: Yes Associated abdominal pain: Yes Location of pain: diffuse Pain consistency: constant Severity: moderate Pain scale (0-10): 7 Quality: cramping and aching Exacerbating factors: eating, vomiting and movement Relieving factors: none Associated symptoms: loss of appetite and nausea/vomiting Treatment prior to arrival: other OTC medicine Related Data Previous Rx's Medication Instructions Recorded ondansetron 4 mg disintegrating 4 mg PO Q8H PRN #10 tab 02/26/21 tablet Allergies Allergy/AdvReac Type Severity Reaction Status Date / Time cyclobenzaprine AdvReac Unknown VISUAL Verified 02/24/21 14:17 [From FLEXERIL] CHANGES ibuprofen AdvReac unknown Verified 02/24/21 14:17 Review of Systems Review of Systems: Constitutional: No Weight loss, No Fever, No Chills, No Night Sweats, No Fatigue, No Malaise ENT/Mouth: No Hearing loss, No Ear Pain, No Nasal Congestion, No Sinus Pain, No Hoarseness, No sore throat, No Rhinorrhea, No Swallowing Difficulty Eyes: No Eye Pain, No Swelling, No Redness, No Foreign Body, No Discharge, No Vision Changes Cardiovascular: No Chest Pain, No SOB, No Dyspnea on Exertion, No Orthopnea, No Edema, No Palpitations Respiratory: No Cough, No Sputum, No Wheezing, No Smoke Exposure, No Dyspnea Gastrointestinal: Positive Nausea, Positive Vomiting, positive Diarrhea, positive abdominal Pain, No Hematochezia, No Melena Genitourinary: no irregular bleeding, No Dysuria, No Urinary Frequency, No Hematuria, No Urinary Incontinence, No Urgency, No Flank Pain, No Urinary Flow Changes, No Hesitancy Musculoskeletal: No joint pain, No Myalgias, No Joint Swelling Skin: No Skin Lesions, No rash Neuro: No Weakness, No Numbness, No Paresthesias, No Loss of Consciousness, No Dizziness, No Headache Psych: No Anxiety/Panic, No Depression, No SI/HI/AH/VH, No Social Issues Heme/Lymph: No Bruising, No Bleeding,No Lymphadenopathy Endocrine: No Polyuria, No Polydipsia, No Temperature Intolerance Yes all other systems are reviewed and are negative Gastrointestinal: Gastrointestinal: Reports nausea PMFSH Past Medical History Attestation statement: The following information was validated with the patient. Source: old records reviewed Medical History Acute hemorrhoid Back pain No known health problems Sleep apnea Surgical History H/O left knee surgery Family History Family History Father Colon cancer Mother Emphysema lung Heart attack Other Mental health disorder Social History Social History Housing: House Alcohol intake: current Alcohol intake frequency: a few times a week Alcohol type: beer Patient Tobacco Use Status: Current everyday Tobacco user Tobacco use type: Cigarette Cigarettes Per Day: 10 Years Smoked: 10 e-Cigarette/Vaping Use: Never Used Advance Directives: No Advance Directives Information Provided: No service: Yes Current occupational status: employed 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 Physical Exam Vital Signs: Vital Signs: Last Vital Signs Temp 98.9 F 02/26/21 16:55 Pulse 64 02/26/21 21:48 Resp 20 02/26/21 21:48 BP 138/96 H 02/26/21 21:48 Pulse Ox 96 02/26/21 21:48 BMI result Body Mass Index 29.2 Appearance: Alert. Oriented X3. Mild distress. Appears fatigued. Afebrile. Eyes: Pupils equal, round and reactive to light. Sclera nonicteric. ENT: Pharynx normal. Moist mucous membranes. Neck: Normal inspection. Neck supple. No cervical lymphadenopathy noted. CVS: Normal heart rate and rhythm. Pulses normal. Apical pulse equal pulses to extremities. Respiratory: No respiratory distress. Breath sounds normal. Abdomen: Soft and diffusely tender to the right and left upper quadrants. Skin: Skin warm and dry. Normal skin color. Normal skin turgor. Extremities: No lower extremity edema. Gait well-balanced well coordinated. Neuro: No motor deficit. No sensory deficit. Cranial nerves 2-12 intact. Course Course Course Narrative: 45-year-old male presents with nausea, vomiting and diarrhea for approximately 5 days. Labs drawn are unremarkable and within normal limits. Abdominal physical exam positive for tenderness to the right and left upper quadrants. Patient does have a significant family history of colon cancer. Will order CT scan of abdomen pelvis. 20 gauge IV started by this LOG MANAGER to the left forearm. First attempt. No complications. 10:[address] scan still pending. 11:[address] scan negative for acute findings requiring emergent intervention. I did discuss this case in detail with patient, he must follow up with Gastroenterology as he has had first-degree family member, father because of colon cancer. Will give Zofran as supportive measures. Patient verbalized understanding of and agrees to plan of care to discharge home. MDM - Nausea/Vomiting/Diarrhea MDM Narrative Medical decision making narrative: Viral syndrome. Colitis. Differential Diagnosis Differential diagnosis: Likely gastroenteritis and dehydration Medical Records Attestation: I reviewed the patient's medical records. Lab Data Attestation: I reviewed the patient's lab results. Result diagrams: 02/26/21 20:56 02/26/21 20:56 Labs: Lab Results 02/26/21 02/26/21 02/26/21 Range/Units 20:56 20:56 21:52 WBC 8.7 (4.8-10.8) X10*3/uL RBC 5.35 (4.60-5.80) X10*6/uL Hgb 16.5 (14.0-18.0) g/dl Hct 47.9 (42.0-52.0) % MCV 89.5 (80.0-98.0) fL MCH 30.8 (27.0-33.0) pg MCHC 34.4 (31.0-36.0) g/dl RDW 12.6 (11.0-16.0) % Plt Count 238 (160-400) X10*3/uL MPV 9.6 (9.4-12.4) fL Immature Gran % (Auto) 0.3 (0.0-0.4) % Neut % (Auto) 71.9 (45-73) % Lymph % (Auto) 21.9 (20-40) % Porter % (Auto) 5.1 (2-11) % Eos % (Auto) 0.3 (0-4) % Baso % (Auto) 0.5 (0-2) % Lymph # (Auto) 1.9 (1.2-4.9) X10*3/uL Porter # (Auto) 0.4 (0.1-1.2) X10*3/uL Eos # (Auto) 0.0 (0.0-0.4) X10*3/uL Baso # (Auto) 0.0 (0.0-0.2) X10*3/uL Abs Immat Gran (auto) 0.03 (0.00-0.03) X10*3/uL Absolute Neuts (auto) 6.2 (2.0-8.3) x10*3/uL Absolute Nucleated RBC 0.000 (0.0-0.012) X10*3/uL Nucleated RBC % (auto) 0.0 (0.0-0.2) /100WBC Sodium 139 (135-145) mmol/L Potassium 4.0 (3.3-5.1) mmol/L Chloride 103 (96-108) mmol/L Carbon Dioxide 26 (22-29) mmol/L Anion Gap 14 (12-20) BUN 12 (9-16) mg/dL Creatinine 0.99 (0.5-1.4) mg/dL Estim Creat Clear Calc 113.3 Estimated GFR > 60 Random Glucose 101 (60-115) mg/dL Calcium 10.3 H D (8.4-10.2) mg/dL Total Bilirubin 1.0 (0.0-1.0) mg/dL Direct Bilirubin 0.3 (0.0-0.5) mg/dL AST 17 (5-37) U/L ALT 19 (0-40) U/L Alkaline Phosphatase 50 D (39-117) U/L Total Protein 7.4 (6.5-8.0) g/dL Albumin 4.6 (3.5-5.0) g/dL Lipase 14 (8-78) U/L Urine Color Urine Appearance Urine pH (5.0-8.0) Ur Specific [place] (1.005-1.025) Urine Protein (NEG-TRACE) MG/DL Urine Glucose (UA) (NEG) MG/DL Urine Ketones (NEG) MG/DL Urine Blood (NEG) Urine Nitrite (NEG) Ur Leukocyte Esterase (NEG) Influenza Type A (PCR) NEGATIVE (Negative) Influenza Type B (PCR) NEGATIVE (Negative) RSV RNA Qual (PCR) NEGATIVE (Negative) SARS-CoV-2 RNA (RT-PCR) NEGATIVE (Negative) 02/26/21 Range/Units 21:52 WBC (4.8-10.8) X10*3/uL RBC (4.60-5.80) X10*6/uL Hgb (14.0-18.0) g/dl Hct (42.0-52.0) % MCV (80.0-98.0) fL MCH (27.0-33.0) pg MCHC (31.0-36.0) g/dl RDW (11.0-16.0) % Plt Count (160-400) X10*3/uL MPV (9.4-12.4) fL Immature Gran % (Auto) (0.0-0.4) % Neut % (Auto) (45-73) % Lymph % (Auto) (20-40) % Porter % (Auto) (2-11) % Eos % (Auto) (0-4) % Baso % (Auto) (0-2) % Lymph # (Auto) (1.2-4.9) X10*3/uL Porter # (Auto) (0.1-1.2) X10*3/uL Eos # (Auto) (0.0-0.4) X10*3/uL Baso # (Auto) (0.0-0.2) X10*3/uL Abs Immat Gran (auto) (0.00-0.03) X10*3/uL Absolute Neuts (auto) (2.0-8.3) x10*3/uL Absolute Nucleated RBC (0.0-0.012) X10*3/uL Nucleated RBC % (auto) (0.0-0.2) /100WBC Sodium (135-145) mmol/L Potassium (3.3-5.1) mmol/L Chloride (96-108) mmol/L Carbon Dioxide (22-29) mmol/L Anion Gap (12-20) BUN (9-16) mg/dL Creatinine (0.5-1.4) mg/dL Estim Creat Clear Calc Estimated GFR Random Glucose (60-115) mg/dL Calcium (8.4-10.2) mg/dL Total Bilirubin (0.0-1.0) mg/dL Direct Bilirubin (0.0-0.5) mg/dL AST (5-37) U/L ALT (0-40) U/L Alkaline Phosphatase (39-117) U/L Total Protein (6.5-8.0) g/dL Albumin (3.5-5.0) g/dL Lipase (8-78) U/L Urine Color YELLOW Urine Appearance CLEAR Urine pH 7.0 (5.0-8.0) Ur Specific [place] 1.025 (1.005-1.025) Urine Protein TRACE (NEG-TRACE) MG/DL Urine Glucose (UA) NEG (NEG) MG/DL Urine Ketones >=80 (NEG) MG/DL Urine Blood NEG (NEG) Urine Nitrite NEG (NEG) Ur Leukocyte Esterase NEG (NEG) Influenza Type A (PCR) (Negative) Influenza Type B (PCR) (Negative) RSV RNA Qual (PCR) (Negative) SARS-CoV-2 RNA (RT-PCR) (Negative) Imaging Data CT abdomen pelvis.: Attestation: I personally reviewed and interpreted this imaging study as follows: Radiologist's impression: FINDINGS: LUNG BASES: The visualized lung bases are unremarkable.? LIVER, GALLBLADDER, AND BILIARY TREE: The liver is normal in size, shape, and attenuation. No focal hepatic lesion or biliary ductal dilatation is present. The gallbladder is unremarkable with no evidence of radiopaque gallstones, gallbladder wall thickening, or obvious pericholecystic inflammatory changes.? PANCREAS: Unremarkable.? SPLEEN: Unremarkable.? ADRENAL GLANDS: Unremarkable.? KIDNEYS AND URETERS: The kidneys are normal in size, shape, and attenuation. No hydronephrosis, hydroureter, or calculi seen. No perinephric stranding. ? There is a subcentimeter hypoattenuating lesion at the lower pole of the left kidney which is too small to characterize, unchanged from prior. BLADDER: Unremarkable.? GASTROINTESTINAL TRACT: The stomach is unremarkable. Normal caliber small bowel. No obstruction. Normal appendix. No colonic wall thickening or acute inflammation. Minimal colonic diverticulosis without diverticulitis. No free air or free fluid.? ABDOMINAL WALL: Small fat-containing left inguinal hernia..? LYMPH NODES: Normal. VASCULAR: Unremarkable. PELVIC VISCERA: The prostate and seminal vesicles are unremarkable.? OSSEOUS STRUCTURES: No acute or suspicious osseous abnormality. Mild degenerative changes in the hips.? CT/CT abdomen pelvis w con IMPRESSION: No acute findings of the abdomen or pelvis. No inflammatory changes.? ? Fleischner guidelines were followed. Discharge Plan Discharge Clinical Impression: Acute viral syndrome Nausea & vomiting Qualifiers: Vomiting type: unspecified Qualified Code(s): R11.2 - Nausea with vomiting, unspecified Patient Disposition: Home, Self-Care Instructions: Acute Nausea and Vomiting (ED), Viral Syndrome (ED) Additional Instructions: You were evaluated for abdominal pain, nausea and vomiting. CT scan of the abdomen and pelvis is negative for acute findings requiring emergent intervention. Your lab values are within normal limits. Your COVID-19 test was negative. Your blood pressure is elevated. Please follow-up with primary care physician as you may need blood pressure medications to manage hypertension. Please follow-up gastroenterology for significant family history of colon cancer. I prescribed Zofran, this medication dissolved under the tongue. Please follow the directions when taking this medication. Thank you for choosing this emergency department for evaluation. Please follow-up with primary care physician as needed. Return to the emergency department for any new, concerning, or worsening symptoms. Prescriptions: New ondansetron 4 mg tablet,disintegrating 4 mg PO Q8H PRN (Reason: nausea and vomiting) Qty: 10 RF: 0 Referrals: Tiarra Hook MD [Physician] - 2 days (Family history of colon cancer)
[2021-02-26 21:20] LABS: Alanine Aminotransferase 19 U/L (0-40); Albumin Level 4.6 g/dL (3.5-5.0); Alkaline Phosphatase 50 U/L (39-117); Anion Gap 14 (12-20); Aspartate Amino Transferase 17 U/L (5-37); Bilirubin Direct 0.3 mg/dL (0.0-0.5); Blood Urea Nitrogen 12 mg/dL (9-16); Calcium 10.3 mg/dL (8.4-10.2); Carbon Dioxide 26 mmol/L (22-29); Chloride 103 mmol/L (96-108); Creatinine Clr Calc Pharmacy 113.3; Estimated Glomerular Filt Rate > 60; Glucose Random 101 mg/dL (60-115); Lipase 14 U/L (8-78); Sodium 139 mmol/L (135-145); Total Protein 7.4 g/dL (6.5-8.0)
[2021-02-26] MEDS: ondansetron HCL 4 MG/2 ML VIAL IVPUSH (21:40)
[2021-02-26] MEDS: 0.9 % Sodium Chloride 1,000 ML 999 ML IVCONT (21:40)
[2021-02-26 21:48] VITALS: BP 138/96; PULSE 64; RESP 20; O2SAT 96
--- NOTE | 2021-02-26 21:55 | PC.NURSE ---
IV established by SWATHI Qureshi. Pt medicated per MAY. UA and swab obtained and sent. VSS. Continue to monitor.
[2021-02-26 21:59] LABS: Appearance Urine CLEAR; Color Urine YELLOW; Glucose Urine UA NEG (NEG); Leukocyte Esterase Urine NEG (NEG); Nitrite Urine NEG (NEG); Specific Gravity - Urine 1.025 (1.005-1.025); Urine Blood NEG (NEG); Urine Ketones >=80 MG/DL (NEG); Urine Protein TRACE MG/DL (NEG-TRACE)
--- NOTE | 2021-02-26 22:27 | PC.NURSE ---
Pt off to CT on hospital bed. Pt requesting pain medication, CONSTRUCTION PLUMBER aware.
[2021-02-26] MEDS: iohexoL 350 MG/ML 100 ML INFUS..BTL 85 ML IV (22:38)
[2021-02-26 22:41] LABS: Influenza A PCR NEGATIVE (Negative); Influenza B PCR NEGATIVE (Negative); Resp Syncy Virus RNA Qual PCR NEGATIVE (Negative); SARS COV2 PCR INHOUSE NEGATIVE (Negative)
[2021-02-26] MEDS: Morphine Sulfate 4 MG/ML CARTRIDGE IVPUSH (22:53)
== END 2021-02-27 00:02 | disposition home or self-care (01) ==
PROVIDERS: Nurse Practitioner Family; Emergency Provider Emergency Medicine; PCP Family Medicine
DX: B34.9 Viral infection, unspecified (principal); Z20.822 Contact with and (suspected) exposure to COVID-19; R11.2 Nausea with vomiting, unspecified; F17.200 Nicotine dependence, unspecified, uncomplicated
CPT/HCPCS: 0241U; 36415; 74177; 80053; 81003; 82248; 83690; 85025; 96361; 96374; 96375; 99284; J2270; J2405; Q9967

== ENCOUNTER 2021-04-19 08:06 | Outpatient (REF) | payer OTHER, SELFPAY ==
--- NOTE | 2021-04-19 12:58 | MHC.AU.ANR ---
Adult Audiological Evaluation Date of Visit: 04/19/21 Reason for Appointment: Audiological evaluation due to concern for decreased hearing in the left ear. Mr. Peres notes that he's had problems with his left ear for most of his life. He notes that he had an operation on his left ear in the early 80s. He reports that he doesn't hear well from the left ear. He denies any concerns for his right ear. 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, 6 years, tank and firearm noise Medical History: Medical History: Tobacco Use Medical History (Other): Sleep apnea, hernia surgery 1998, tonsillectomy, adenoidectomy Allergies: Ibuprofen, cyclobenzaprine Medication List: None Otoscopy: Right Ear: Unremarkable Left Ear: Unremarkable Tympanometry: Tympanometry performed due to: History of ear surgery Right Ear: Negative Middle Ear Pressure (Type C) Left Ear: Non-compliant Middle Ear System (Type B) Hearing Evaluation: Transducer(s) Used: Insert Earphones, Bone Conduction Method: Conventional Audiometry Stimuli Used: Pure Tones Right Ear: Description of Hearing: Mild hearing loss at 250 Hz, rising to normal hearing from 500-8000 Hz. Slight conductive component at 500 and 1000 Hz. Left Ear: Description of Hearing: Moderately-severe rising to mild conductive hearing loss from 250-1500 Hz, then rising to normal hearing at 2000 Hz, and sloping to a mild to moderately-severe conductive hearing loss from 0639-8744 Hz. Speech Recognition Threshold (SRT): Method Used: Monitored Live Voice Stimuli Used: Spondee Words Right Ear: 15 dBHL Left Ear: 20 dBHL Word Discrimination: Method: Recorded Lists Word Lists Used: [employer]-6 Right Ear: 100% at 55 dBHL Left Ear: 92% at 80 dBHL Recommendations: Audiological re-evaluation in one year. Referral to Ear, Nose, and Throat is recommended to address conductive hearing loss in the left ear and middle-ear dysfunction bilaterally. Diagnosis: Primary Diagnosis: H90.0 Conductive Hearing Loss, Bilateral Secondary Diagnosis: H69.93 Unspecified Eustachian Tube Dysfunction, Bilateral Services Performed: Services Performed: Comprehensive Audiological Evaluation (CPT 79448) Tympanometry (CPT 78823) Signature: Student/Clinical Fellow: No I have reviewed/agreed with student/fellow documentation: N/A Provider: Clayton Oliver, CCC-A
== END 2021-04-19 08:07 | disposition home or self-care (01) ==
LOC: HO.SH 08:06
PROVIDERS: Visit Provider Family Medicine
DX: Z01.118 Encounter for examination of ears and hearing with other abnormal findings (principal); H90.0 Conductive hearing loss, bilateral; H69.93 Unspecified Eustachian tube disorder, bilateral
CPT/HCPCS: 92557; 92567

== ENCOUNTER → 2021-04-19 09:37 | Outpatient (REF) | payer OTHER, SELFPAY | LOC: HO.SL 09:37 | PROVIDERS: PCP Family Medicine; Visit Provider Psychiatry & Neurology Neurology | DX: R06.81 Apnea, not elsewhere classified (principal); R06.83 Snoring; G47.19 Other hypersomnia | CPT/HCPCS: 95806 ==

== ENCOUNTER → 2021-04-28 08:41 | Outpatient (BNVA) | payer OTHER, SELFPAY | PROVIDERS: PCP Family Medicine; Referring Provider Family Medicine; Visit Provider Physician Assistant ==

== ENCOUNTER 2021-04-28 14:15 | Outpatient (REF) | payer OTHER, SELFPAY ==
[2021-04-29 14:47] LABS: H Pylori Breath Test Negative (Negative)
== END 2021-04-28 14:16 | disposition home or self-care (01) ==
LOC: HO.LNP 14:15
PROVIDERS: Visit Provider Physician Assistant
DX: K21.9 Gastro-esophageal reflux disease without esophagitis (principal); Z80.0 Family history of malignant neoplasm of digestive organs; Z11.0 Encounter for screening for intestinal infectious diseases
CPT/HCPCS: 83013

== ENCOUNTER → 2021-05-14 13:44 | Outpatient (BNVA) | payer OTHER, SELFPAY | PROVIDERS: PCP Family Medicine; Visit Provider Psychiatry & Neurology Neurology ==